=== PATIENT | female | born 1990 | race Caucasian/White ===

== ENCOUNTER 2016-09-02 19:47 | Emergency (ER) | payer OTHER ==
[~2016-09-02] VITALS: Ht 160 cm; Wt 59.9 kg
[2016-09-02 19:50] VITALS: Ht 160 cm; Wt 59.9 kg
[2016-09-02] MEDS ORDERED: AZIT250T94 PO (21:11)
[2016-09-02] MEDS ORDERED: D-ME473S18 PO (21:12)
--- NOTE | 2016-09-02 21:29 | RADRPT ---
PROCEDURE: XR Chest. CLINICAL INDICATION: Cough, fever and headaches TECHNIQUE: AP Portable chest. COMPARISON: None available FINDINGS: The soft tissues and bones are normal. A right middle lobe consolidation is present which obscures t he right heart border. No associated effusion is present. The mediastinum and heart are normal. No pneumothorax is present. IMPRESSION: 1. Right middle lobe pneumonia. Recommend follow-up until resolution. 2. No associated pleural effusion and no pneumothorax. RPTAT: [facility] .Carmela Gilman MD, Date Time Electronically viewed and signed by .Carmela Gilman MD, MD on 09/02/2016 21:28 .C/
--- NOTE | 2016-09-02 21:42 | ERD ---
ER Documentation Chief Complaint Date/Time DATE: 09/02/16 TIME: 21:42 Chief Complaint cough w/ on and off fever x 2 weeks HPI Patient is a 26-year-old female with a past medical history of asthma who presents to the emergency department with a cough and fever 2 weeks. Patient states that her cough is dry in nature. She states it is worse at night and when talking for long periods of time. Patient reports intermittent fevers over the last 2 weeks. She states that she had a Tmax 101.7, 2 days ago. Patient has been taking NyQuil for her symptoms with minimal alleviation. Patient also reports using her albuterol inhaler at least 3 times per day. Patient denies any nausea, vomiting, abdominal pain, ear pain, throat pain, pelvic pain. Patient reports intermittent diarrhea, nonbloody nonmucous. She denies any sick contacts. Patient denies any recent travel. Patient's last menstrual period was one week ago. ROS All systems reviewed and are negative except as per history of present illness. Medications Home Meds Active Scripts Dextromethorphan Hb-Promethazine Hcl (Promethazine DM Syrup) 473 Ml Syrup, 5 ML PO Q6H Y for COUGH, #4 OZ Prov:OLIMPIA JACOBS PA-C 09/02/16 Azithromycin* (Zithromax*) 250 Mg Tablet, 250 MG PO .ZPACK DIRECTED, #6 TAB TAKE 500 MG (2 TABS) THE FIRST DAY THEN 250 MG (1 TAB) DAYS 2-5 Prov:OLIMPIA JACOBS PA-C 09/02/16 Allergies Allergies: Coded Allergies: No Known Allergy (Unverified , 09/02/16) PMhx/Soc Medical and Surgical Hx: pt denies Medical Hx, pt denies Surgical Hx History of Surgery: No Anesthesia Reaction: No Hx Neurological Disorder: No Hx Respiratory Disorders: Yes (asthma) Hx Cardiac Disorders: No Hx Psychiatric Problems: No Hx Miscellaneous Medical Probl: No Hx Alcohol Use: No Hx Substance Use: No Hx Tobacco Use: No Physical Exam Vitals Vital Signs Date Time Temp Pulse Resp B/P Pulse Ox O2 Delivery O2 Flow Rate FiO2 09/02/16 22:01 100 16 98 Room Air 09/02/16 19:50 97.9 20 113/68 97 Physical Exam GENERAL: Well-developed, well-nourished female. Appears to be in no respiratory distress. No nasal flaring, no grunting, no abdominal retractions. HEAD: Normocephalic, atraumatic. No deformities or ecchymosis. EYE: Pupils equal, round, and reactive to light. EOMs intact. No conjunctival erythema. No scleral icterus. No eye discharge. ENT: External ear without any masses or tenderness. Auditory canals clear bilaterally. TM visualized bilaterally, non-erythematous, non-bulging. Nasal mucosa pink with no discharge. Oropharynx is pink without any tonsillar erythema or exudates. No uvula deviation. No kissing tonsils. NECK: Supple. No lymphadenopathy or thyromegaly. No meningismus. No JVD. No bruits. Trachea midline. LUNGS: Coarse breath sounds on the right lower lobe. HEART: Regular rate and rhythm. No murmurs, rubs or gallops. ABDOMEN: Soft, nontender, and nondistended. Positive bowel sounds in all four quadrants. No rebound tenderness, no guarding. (-) McBurney's point tenderness. No CVA tenderness. BACK: No midline tenderness. EXTREMITIES: Equal pulses bilaterally. No peripheral clubbing, cyanosis or edema. No unilateral leg swelling. NEUROLOGIC: Alert and oriented to person, place and time. Moving all four extremities. 5/5 strength in all extremities. Normal speech. Steady gait. (-) Brudzinski sign- (-) Kernig's sign. SKIN: Normal color. Warm and dry. No rashes or lesions. Procedures/MDM ED COURSE: The patient was stable throughout ED course. I kept the patient and/or family informed of laboratory and diagnostic imaging results throughout the ED course. DIAGNOSTIC IMAGING: Read by radiologist. [place] [address] Radiology Main Line: [phone] DIAGNOSTIC IMAGING REPORT Patient: PHILOMENA HARDY : 1990 Age: 26 Sex: F MR #: [id number] DOS: 09/02/162036 Ordering MD: OLIMPIA JACOBS PA-C Location: [facility] Room/Bed: PROCEDURE: XR Chest. CLINICAL INDICATION: Cough, fever and headaches TECHNIQUE: AP Portable chest. COMPARISON: None available FINDINGS: The soft tissues and bones are normal. A right middle lobe consolidation is present which obscures the right heart border. No associated effusion is present. The mediastinum and heart are normal. No pneumothorax is present. IMPRESSION: 1. Right middle lobe pneumonia. Recommend follow-up until resolution. 2. No associated pleural effusion and no pneumothorax. RPTAT: [facility] .Carmela Gilman MD, Date Time Electronically viewed and signed by .Carmela Gilman MD, MD on 09/02/2016 21: 28 .C/ CC: OLIMPIA JACOBS PA-C MEDICAL DECISION MAKING: This is a 26-year-old female with a past medical history of asthma who presents with a dry cough and fever 2 weeks. Vital signs were reviewed. Patient was afebrile. Patient was not hypoxic. ENT exam was normal. Lung exam revealed coarse breath sounds in the lower right lobe. CXR revealed right middle lobe pneumonia. No associated pleural effusion or pneumothorax. Given these findings , the patients presentation is most consistent with community acquired pneumonia.. I have a much lower clinical concern for meningitis, sinusitis, otitis externa, acute otitis media, strep pharyngitis, epiglottitis or peritonsillar abscess. PRESCRIPTIONS: Azithromycin, promethazine DM cough syrup. Take Tylenol/Ibuprofen for fever and pain control. DISCHARGE: At this time, patient is stable for discharge and outpatient management. Supportive therapies such as OTC throat lozenges, salt water gurgles, popsicles and jello discussed. I have instructed the patient to follow-up with his/her primary care physician in 1-2 days. Patient advised to follow-up with primary care physician for repeat chest x-ray in 1 week. I have instructed the patient to promptly return to the ER for any new or worsening symptoms including increased pain, swelling, fever, nausea, vomiting, weakness or difficulty breathing. The patient and/or family expressed understanding of and agreement with this plan. All questions were answered. Home care instructions were provided. Departure Diagnosis: Primary Impression: Pneumonia Pneumonia type: due to unspecified organism Laterality: right Lung location : middle lobe of lung Qualified Code: J18.9 - Pneumonia of right middle lobe due to infectious organism Additional Impression: Fever Fever type: unspecified Qualified Code: R50.9 - Fever, unspecified fever cause Condition: Stable Patient Instructions: Pneumonia (Adult) Referrals: COMMUNITY CLINICS YOU HAVE RECEIVED A MEDICAL SCREENING EXAM AND THE RESULTS INDICATE THAT YOU DO NOT HAVE A CONDITION THAT REQUIRES URGENT TREATMENT IN THE EMERGENCY DEPARTMENT. FURTHER EVALUATION AND TREATMENT OF YOUR CONDITION CAN WAIT UNTIL YOU ARE SEEN IN YOUR DOCTORS OFFICE WITHIN THE NEXT 1-2 DAYS. IT IS YOUR RESPONSIBILITY TO MAKE AN APPOINTMENT FOR FOLOW-UP CARE. IF YOU HAVE A PRIMARY DOCTOR --you should call your primary doctor and schedule an appointment IF YOU DO NOT HAVE A PRIMARY DOCTOR YOU CAN CALL OUR PHYSICIAN REFERRAL HOTLINE AT IF YOU CAN NOT AFFORD TO SEE A PHYSICIAN YOU CAN CHOSE FROM THE FOLLOWING [facility] [address] [facility] [address] [facility] [facility] [address] [facility] [address] [facility] [address] [facility]. [facility]. [address] [facility] [facility] YOU HAVE RECEIVED A MEDICAL SCREENING EXAM AND THE RESULTS INDICATE THAT YOU DO NOT HAVE A CONDITION THAT REQUIRES URGENT TREATMENT IN THE EMERGENCY DEPARTMENT. FURTHER EVALUATION AND TREATMENT OF YOUR CONDITION CAN WAIT UNTIL YOU ARE SEEN IN YOUR DOCTORS OFFICE WITHIN THE NEXT 1-2 DAYS. IT IS YOUR RESPONSIBILITY TO MAKE AN APPOINTMENT FOR FOLOW-UP CARE. IF YOU HAVE A PRIMARY DOCTOR --you should call your primary doctor and schedule and appointment IF YOU DO NOT HAVE A PRIMARY DOCTOR YOU CAN CALL OUR PHYSICIAN REFERRAL HOTLINE AT . IF YOU CAN NOT AFFORD TO SEE A PHYSICIAN YOU CAN CHOSE FROM THE FOLLOWING [facility] INSTIT[facility] [address] [place] [address] [facility] [address] [place] [address] [facility] [address] [place] [address] Additional Instructions: Complete full course of antibiotics. Hydrate well. Call your primary care doctor TOMORROW for an appointment during the next 1-2 days.See the doctor sooner or return here if your condition worsens before your appointment time. OLIMPIA JACOBS PA-C Sep 02, 2016 21:42
[2016-09-02 22:01] VITALS: PULSE 100; RESP 16
== END 2016-09-02 22:01 | disposition home or self-care (01) ==
LOC: FTE 19:47
DX: J18.9 Pneumonia, unspecified organism (principal); R50.9 Fever, unspecified; J45.909 Unspecified asthma, uncomplicated
CPT/HCPCS: 71010; Z7502

== ENCOUNTER 2017-02-06 15:49 | Emergency (ER) | payer OTHER ==
[~2017-02-06] VITALS: Ht 160 cm; Wt 57.0 kg
[~2017-02-06 15:49] MED LIST: AZIT250T94 PO; D-ME473S18 PO
[2017-02-06 15:52] VITALS: Ht 160 cm; Wt 57.0 kg
[2017-02-06] MEDS ORDERED: OFLO5DRO7 BOTH EARS (16:56)
[2017-02-06 17:07] VITALS: BP 108/70; PULSE 54; RESP 17; TEMP 98.6
--- NOTE | 2017-02-06 17:30 | ERD ---
ER Documentation Chief Complaint Date/Time DATE: 02/06/17 TIME: 17:27 Chief Complaint bilateral eye pain x 3 days after sleeping with contacts HPI This a 26-year-old female who presents to the emergency department today complaining of bilateral eye pain and light sensitivity after falling asleep with her contacts in 3 days ago. Patient states that she got drunk and fell asleep and forgot to take her contacts out. States she has a history of corneal ulcer but she is unsure which eye it was in. States this was approximately 2 months ago. Denies any fevers or chills. ROS All systems reviewed and are negative except as per history of present illness. Medications Home Meds Active Scripts Ofloxacin Otic (Ofloxacin Otic) 5 Ml Drops, 2 DROP BOTH EARS Q4 for 7 Days, #1 BOTTLE 1-2 gtt in both eyes every 2-4 hours x 2 days, then 2 gtt QID x 5 days Prov:DL MARTINEZ PA-C 02/06/17 Dextromethorphan Hb-Promethazine Hcl (Promethazine DM Syrup) 473 Ml Syrup, 5 ML PO Q6H Y for COUGH, #4 OZ Prov:OLIMPIA JACOBS PA-C 09/02/16 Azithromycin* (Zithromax*) 250 Mg Tablet, 250 MG PO .ZPACK DIRECTED, #6 TAB TAKE 500 MG (2 TABS) THE FIRST DAY THEN 250 MG (1 TAB) DAYS 2-5 Prov:OLIMPIA JACOBS PA-C 09/02/16 Allergies Allergies: Coded Allergies: No Known Allergy (Unverified , 09/02/16) PMhx/Soc History of Surgery: No Anesthesia Reaction: No Hx Neurological Disorder: No Hx Respiratory Disorders: Yes (asthma) Hx Cardiac Disorders: No Hx Psychiatric Problems: No Hx Miscellaneous Medical Probl: No Hx Alcohol Use: No Hx Substance Use: No Hx Tobacco Use: No Physical Exam Vitals Vital Signs Date Time Temp Pulse Resp B/P Pulse Ox O2 Delivery O2 Flow Rate FiO2 02/06/17 17:07 98.6 54 17 108/70 97 Room Air 02/06/17 15:52 97.8 90 18 111/66 98 Physical Exam Const: No acute distress Head: Atraumatic Eyes: Normal Conjunctiva. PERRLA. EOM intact. ENT: Normal External Ears, Nose and Mouth. Neck: Full range of motion..~ No meningismus. Resp: Clear to auscultation bilaterally Cardio: Regular rate and rhythm, no murmurs Skin: No petechiae or rashes Neur: Awake and alert Psych: Normal Mood and Affect Procedures/MDM This 26-year-old female who presents the emergency department today complaining of bilateral eye pain and light sensitivity for the past couple of days after sleeping with her contacts in. Patient did have a history of corneal ulcer. I did obtain the patient's visual acuity Visual acuity shows 20/200 bilaterally. Patient did not bring her eyeglasses with her. I was unable to obtain a floor seen test with a Wood lamp as a wood lamp was unavailable. Patient is afebrile and otherwise well-appearing. Low suspicion for orbital cellulitis, preseptal cellulitis, hyphema, globe rupture, acute narrow angle glaucoma. patient has a history of corneal ulcer and given her reports of contact lens use and falling asleep with her contact lens and I will treat the patient for possible corneal abrasion versus keratitis versus bacterial conjunctivitis patient was given a prescription for ofloxacin. 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 Patient understood. She was instructed not to wear her contacts and to wear her eyeglasses. At this time the patient is stable for discharge and outpatient management. Patient should follow up with their PCP in the next 1-2 days. They may return to the emergency department sooner for any persistent or worsening of symptoms. Patient understood and agreed with the plan. Departure Diagnosis: Primary Impression: Eye problem Condition: Fair Patient Instructions: Conjunctivitis, Non-Specific, Corneal Ulcer Referrals: your PCP your opthomologist Additional Instructions: Call your primary care doctor TOMORROW for an appointment during the next 1-2 days.See the doctor sooner or return here if your condition worsens before your appointment time. Make an appointment with your natural gas treating unit operator Do not wear your contacts and wear your eyeglasses Take antibiotics as prescribed DL MARTINEZ PA-C Feb 06, 2017 17:30
== END 2017-02-06 17:08 | disposition home or self-care (01) ==
LOC: FTE 15:49
DX: H57.13 Ocular pain, bilateral (principal); J45.909 Unspecified asthma, uncomplicated
CPT/HCPCS: 99283